=== PATIENT | female | born 1965 | race Two or more races ===

== ENCOUNTER → 2025-05-11 | Outpatient (CLI) | payer MEDICAID, SELFPAY ==
--- NOTE | 2025-05-11 15:30 | XR_ITS ---
Examination: CT abdomen with intravenous contrast. Coronal 2-D reconstructions. Sagittal 2-D reconstructions. Date and time of exam:May 11, 2025 1539 hours Comparison September 06, 2019 INDICATIONS: Renal cystic disease, history flank pain months, 4.7 cm fat-containing right adnexal mass on CT abdomen pelvis September 06, 2019 CTDI: vol (mGy): 7.47 DLP: (mGycm): 241 Technique: Axial images of the abdomen have been obtained, 3 mm slice thickness, 60 cc [id number] 2-D sagittal coronal reconstructions Low dose protocols were performed. One or more of the following dose reduction techniques were used; automated exposure control, adjustment of the mA and/or KV according to patient size, use of iterative reconstruction technique. Findings: No focal liver or splenic lesions No gallstones No pancreatic or adrenal mass Right renal parapelvic cyst with calcification in the wall, stable in size, compared to prior study, measuring 22 mm Aorta normal size No bowel obstruction Small fat-containing umbilical hernia IMPRESSION: Right renal complex parapelvic cyst, recommend MRI abdomen kidneys follow-up pre and postcontrast to assess this complex cyst
== END | disposition home or self-care (01) ==
PROVIDERS: Referring Provider Physician Assistant; Visit Provider Physician Assistant
DX: N94.89 Other specified conditions associated with female genital organs and menstrual cycle (principal)
CPT/HCPCS: 74160; A4649; Q9967